=== PATIENT | female | born 1990 | race Two or more races ===

== ENCOUNTER 2025-03-03 08:16 | Emergency (ER) | payer MEDICAID, OTHER ==
[~2025-03-03] VITALS: Ht 157.5 cm; Wt 82.0 kg
[2025-03-03 08:57] VITALS: BP 148/73; PULSE 88; RESP 16; TEMP 98.9; O2SAT 97
[2025-03-03] MEDS ORDERED: AUG875T PO (09:20)
--- NOTE | 2025-03-03 09:25 | ED.PDOC ---
History of Present Illness(SKN HPI Comments A 34 YEAR OLD FEMALE PRESENTS TO THE ED WITH COMPLAINT OF CAT BITE OF RIGHT INDEX FINGER AND CAT SCRATCH OF LEFT FOREARM. PATIENT STATES SHE WAS BIT BY A CAT ON HER RIGHT INDEX FINGER AND SCRATCHED ON HER LEFT FOREARM. PATIENT DENIES FEVER, CHILLS, SHORTNESS OF BREATH, CHEST PAIN, ABDOMINAL PAIN, NAUSEA, VOMITING, HEADACHE, OR OTHER COMPLAINTS. NO OTHER SYMPTOMS OR MODIFYING FACTORS AT THIS TIME. PATIENT IS ALERT, ORIENTED X 4, AND HAS STEADY GAIT. Chief Complaint: Animal Bite Time Seen by MD: 08:27 Primary Care Provider: BEN History of Present Illness: Nurses Notes, Medications, Allergies Allergies: Coded Allergies: NO KNOWN ALLERGIES (Unverified , 03/03/25) Home Meds Active Scripts Amoxicillin & Pot Clavulanate (AUGMENTIN TABLET) 875 Mg Tb, 875 MG PO BID for 7 Days, #14 TAB Prov:FATIMAHROLAND 03/03/25 Information Source: Patient Mode of Arrival: Ambulatory Severity: Mild Timing: Hours Duration: Since onset, Hours Prehospital treatment: None Location: Arm (LEFT FOREARM), Other (RIGHT INDEX FINGER) Mechanism: Cat Occurence: Indoors Object: None Condition of Object: None Retained Foreign Body: No Wound Type: Abrasion Immunization Status of Animal: NA Tetanus: UTD History of: None Associated Signs and Symptoms: None Past Medical History PAST MEDICAL HISTORY: Denies Surgical History: Denies all surgeries 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: No 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 History Family History Family History: Reviewed,noncontributory to illness Social History Smoker: Non-Smoker Alcohol: Denies ETOH Use Drugs: Denies Drug Use Lives In: Home Constitutional: denies: chills, diaphoresis, fatigue, fever, malaise, sweats, weakness, others EENTM: denies: blurred vision, double vision, ear bleeding, ear discharge, ear drainage, ear pain, ear ringing, eye pain, eye redness, hearing loss, mouth pain, mouth swelling, nasal discharge, nose bleeding, nose congestion, nose pain, photophobia, tearing, throat pain, throat swelling, voice changes, others Respiratory: denies: cough, hemoptysis, orthopnea, SOB at rest, shortness of breath, SOB with excertion, stridor, wheezing, others Cardiovascular: denies: chest pain, dizzy spells, diaphoresis, Dyspnea on exertion, edema, irregular heart beat, left arm pain, lightheadedness, palpitations, PND, syncope, others Gastrointestinal: denies: abdomen distended, abdominal pain, blood streaked bowels, constipated, diarrhea, dysphagia, difficulty swallowing, hematemesis, melena, nausea, poor appetite, poor fluid intake, rectal bleeding, rectal pain, vomiting, others Genitourinary: denies: abnormal vagina bleeding, burning, dyspareunia, dysuria, flank pain, frequency, hematuria, incontinence, pain, , vagina discharge, urgency, others Neurological: denies: dizziness, fainting, headache, left sided numbness, left sided weakness, numbness, paresthesia, pre-existing deficit, right sided numbness, right sided weakness, seizure, speech problems, tingling, tremors, weakness, others Musculoskeletal: denies: back pain, gout, joint pain, joint swelling, muscle pain, muscle stiffness, neck pain, others Integumetry: reports: others (CAT SCRATCH OF LEFT FOREARM, CAT BITE OF RIGHT INDEX FINGER); denies: bruises, change in color, change in hair/nails, dryness, laceration, lesions, lumps, rash, wounds Allergic/Immunocompromised: denies: Difficulty Healing, Frequent Infections, Hives, Itching, others Hematologic/Lymphatic: denies: anemia, blood clots, easy bleeding, easy br uising, swollen glands, others Endocrine: denies: excessive hunger, excessive sweating, excessive thirst, excessive urination, flushing, intolerance to cold, intolerance to heat, unexplained weight gain, unexplained weight loss, others Psychiatric: denies: anxiety, bipolar disorder, depression, hopeless, panic disorder, schizophrenia, sleepless, suicidal, others All Other Systems: Reviewed and Negative Physical Exam General Appearance: No Apparent Distress, Normal HEENT: Normal ENT Inspection, PERRL/EOMI, Pharynx Normal, TMs Normal Neck: Full Range of Motion, Non-Tender, Normal, Normal Inspection Respiratory: Chest Non-Tender, Lungs Clear, No Accessory Muscle Use, No Respiratory Distress, Normal Breath Sounds Cardiovascular: No Edema, No JVD, No Murmur, No Gallop, Normal Peripheral Pulses, Regular Rate/Rhythm Breast Exam: Deferred Gastrointestinal: No Organomegaly, Non Tender, No Pulsatile Mass, Normal Bowel Sounds, Soft Genitalia: Deferred Pelvic: Deferred Rectal: Deferred Extremities: No calf tenderness, Normal capillary refill, Normal inspection, Normal range of motion, Non-tender, No pedal edema Musculoskeletal : Apperance: Normal Neurologic: Alert, striping machine operator II-XII nml as Tested, No Motor Deficits, Normal Affect, Normal Mood, No Sensory Deficits Cerebellar Function: Normal Reflexes: Normal Skin: Dry, Normal Color, Warm, Wounds (TWO SCRATCH WOUNDS ON RIGHT INDEX FINGER AND LEFT FOREARM. NO REDNESS AND SWELLING. NORMAL ROM. ) Peripheral Pulses: 2+ carotid (R), 2+ carotid (L), 2+ dorsalis pedis (R), 2+ dorsalis pedis (L) Lymphatic: No Adenopathy Was a procedure done? Was a procedure done?: No Differential Diagnosis (INTG) Differential Diagnosis: Abrasion, Contusion, Puncture Wound, Other (SCRATCHE WOUNDS) Differential Diagnosis: N/A Differential Diagnosis: N/A Abscess: N/A Differential Diagnosis: N/A X-Ray, Labs, Meds, VS Vital Signs Date Time Temp Pulse Resp B/P (MAP) Pulse Ox O2 Delivery O2 Flow Rate FiO2 03/03/25 08:57 88 03/03/25 08:57 98.9 88 16 148/73 (98) 97 98.9 03/03/25 08:30 98.9 88 16 148/73 (98) 97 98.9 X-Ray, Labs, Meds, VS Comment EXTERNAL MEDICAL RECORDS REVIEWED: [NONE] INDEPENDENT HISTORIANS: [NONE] SOCIAL DETERMINANTS OF HEALTH: [NONE] LABS ORDERED: NONE REVIEWED AND INTERPRETED RESULTS: NONE IMAGING ORDERED: NONE TREATMENTS ORDERED: PATIENT'S CAT BITE AND CAT SCRATCH WERE PATIENT HAS A NORMAL SALINE AND ALCOHOL SWABS. PROCEDURES PERFORMED: NONE CRITICAL CARE TIME: NONE I HAVE DISCUSSED THE PATIENT WITH THE ATTENDING PHYSICIAN DR. SUNG AND HE AGREES WITH THE PATIENT'S PLAN OF CARE AND DISPOSITION. BASED ON HISTORY OF PRESENT ILLNESS, AND PHYSICAL EXAM, PATIENT WILL BE DISCHARGED HOME. DISCUSSED PLAN FOR DISCHARGE HOME WITH RX [AUGMENTIN]. ME DICATION WARNINGS GIVEN. SHARED DECISION MAKING: DISCUSSED WITH PATIENT THAT THEIR WORKUP WAS NORMAL. PATIENT INSTRUCTED TO FOLLOW UP WITH PRIMARY CARE PROVIDER IN 1-2 DAYS FOR RE- EVALUATION OF SYMPTOMS. PATIENT VERBALIZES UNDERSTANDING TO RETURN TO ED FOR NEW OR WORSENING SYMPTOMS OR IF FOLLOW UP WITH PCP CANNOT BE OBTAINED. PATIENT FEELS COMFORTABLE GOING HOME AT THIS TIME. ALL QUESTIONS ADDRESSED AT TIME OF DISCHARGE. Time of 1ST Reevaluation: 09:40 Reevaluation 1ST: Improved Patient Education/Counseling: Diagnosis, Treatment, Need For Follow Up Family Education/Counseling: Diagnosis, Treatment, Need For Follow Up Medical Screening: No EMC Exist At This Time Departure 1 Departure Time of Disposition: 09:40 Impression: Primary Impression: Cat bite of index finger Qualified Codes: S61.258A - Open bite of other finger without damage to nail, initial encounter; W55.01XA - Bitten by cat, initial encounter Additional Impression: Cat scratch of left forearm Qualified Codes: S50.812A - Abrasion of left forearm, initial encounter; W55.03XA - Scratched by cat, initial encounter Disposition: HOME / SELF CARE / HOMELESS Condition: Stable Additional Instructions: FOLLOW-UP WITH PCP IN 1 TO 2 DAYS. TAKE MEDICATIONS PRESCRIBED. RETURN TO ED FOR ANY NEW OR WORSENING SYMPTOMS. e-Prescriptions Amoxicillin & Pot Clavulanate (AUGMENTIN TABLET) 875 Mg Tb 875 MG PO BID for 7 Days, #14 TAB Prov: ROLAND SHERIDAN 03/03/25 Discharged With: Self, Spouse Critical Care Note Critical Care Time?: No Stability Stability form required: No I personally scribed for ROLAND SHERIDAN ([email or web address]) on 03/03/25 at 09:25. Electronically submitted by Angel Cuevas ([email or web address]). ROLAND SHERIDAN March 03, 2025 09:25
== END 2025-03-03 09:33 | disposition home or self-care (01) ==
LOC: ER 08:16
DX: S61.250A Open bite of right index finger without damage to nail, initial encounter (principal); S50.812A Abrasion of left forearm, initial encounter; W55.01XA Bitten by cat, initial encounter; Y93.89 Activity, other specified; Y92.89 Other specified places as the place of occurrence of the external cause; Y99.8 Other external cause status

== ENCOUNTER 2025-03-20 13:43 | Emergency (ER) | payer MEDICAID ==
[~2025-03-20] VITALS: Ht 157.5 cm; Wt 86.8 kg
[~2025-03-20 13:43] MED LIST: AUG875T PO
[2025-03-20 13:55] VITALS: TEMP 98.8
[2025-03-20 14:14] VITALS: O2SAT 95
[2025-03-20 14:18] LABS: Basophils # (auto) 0 10 ^3/uL (0-0.2); Basophils % (auto) 0.4 % (0.0-2.0); Eosinophils # (auto) 0.2 10 ^3/uL (0-0.8); Eosinophils % (auto) 2.8 % (0.0-7.0); Hematocrit 36.5 % (36.0-46.0); Hemoglobin 12.5 g/dL (12.2-16.2); Lymphocytes # (auto) 2.5 10 ^3/uL (0.4-5.4); Lymphocytes % (auto) 28.5 % (10.0-50.0); Mean Corpuscular Hemoglobin 28.6 pg (28.0-32.0); Mean Corpuscular Hgb Conc. 34.2 g/dL (32.0-36.0); Mean Corpuscular Volume 83.6 fL (80.0-100.0); Monocytes # (auto) 0.7 10 ^3/uL (0-1.3); Monocytes % (auto) 7.7 % (0.0-12.0); Neutrophils # (auto) 5.4 10 ^3/uL (1.6-8.6); Neutrophils % (auto) 60.6 % (37.0-80.0); Platelet Count (auto) 264 10^3/uL (140-450); Red Blood Cells 4.36 10^6/uL (4.0-5.20); White Blood Cell 8.9 10^3/uL (4.4-10.8)
--- NOTE | 2025-03-20 14:25 | ED.PDOC ---
REMNANT SORTER HPI Comments 34 y.o female presents to the ED for a chief complaint of intermittent vaginal bleeding associated with blood clots and cramping that started 3 days ago. 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 Patient denies any nausea, vomiting, diarrhea, fever, back pain or recent trauma. Patient denies any other medical history or allergies. Chief Complaint: Vaginal Bleed Time Seen by MD: 14:19 Reviewed Notes: Nurses Notes, Medications, Allergies Allergies: Coded Allergies: NO KNOWN ALLERGIES (Unverified , 03/03/25) Home Meds Active Scripts Amoxicillin & Pot Clavulanate (AUGMENTIN TABLET) 875 Mg Tb, 875 MG PO BID for 7 Days, #14 TAB Prov:ROLAND SHERIDAN 03/03/25 Information Source: Patient Mode of Arrival: Ambulatory Timing: Days (3) Severity: Moderate Vaginal Discharge: None Vaginal Lesions: None Bleeding Quality: Clotted Vaginal Mass: None Onset Of Mass/Bleeding: Spontaneous Sexual Activity: Last Consensual Garnet: Unknown Control: None History of: Current Associated Signs and Symptoms: Vaginal Bleeding, Cramping Past Medical History PAST MEDICAL HISTORY: Denies Surgical History: Denies all surgeries 4 Para 1 AB 2 LMP 01/11/25 Family History Family History: Reviewed,noncontributory to illness Social History Smoker: Non-Smoker Alcohol: Denies ETOH Use Drugs: Denies Drug Use Lives In: Home Constitutional: denies: chills, diaphoresis, fatigue, fever, malaise, sweats, weakness, others EENTM: denies: blurred vision, double vision, ear bleeding, ear discharge, ear drainage, ear pain, ear ringing, eye pain, eye redness, hearing loss, mouth pain, mouth swelling, nasal discharge, nose bleeding, nose congestion, nose pain, photophobia, tearing, throat pain, throat swelling, voice changes, others Respiratory: denies: cough, hemoptysis, orthopnea, SOB at rest, shortness of breath, SOB with excertion, stridor, wheezing, others Cardiovascular: denies: chest pain, dizzy spells, diaphoresis, Dyspnea on exertion, edema, irregular heart beat, left arm pain, lightheadedness, palpitations, PND, syncope, others Gastrointestinal: denies: abdomen distended, abdominal pain, blood streaked bowels, constipated, diarrhea, dysphagia, difficulty swallowing, hematemesis, melena, nausea, poor appetite, poor fluid intake, rectal bleeding, rectal pain, vomiting, others Genitourinary: reports: abnormal vagina bleeding, pain, ; denies: burning, dyspareunia, dysuria, flank pain, frequency, hematuria, incontinence, vagina discharge, urgency, others Neurological: denies: dizziness, fainting, headache, left sided numbness, left sided weakness, numbness, paresthesia, pre-existing deficit, right sided numbness, right sided weakness, seizure, speech problems, tingling, tremors, weakness, others Musculoskeletal: denies: back pain, gout, joint pain, joint swelling, muscle pain, muscle stiffness, neck pain, others Integumetry: denies: bruises, change in color, change in hair/nails, dryness, laceration, lesions, lumps, rash, wounds, others Allergic/Immunocompromised: denies: Difficulty Healing, Frequent Infections, Hives, Itching, others Hematologic/Lymphatic: denies: anemia, blood clots, easy bleeding, easy bruising, swollen glands, others Endocrine: denies: excessive hunger, excessive sweating, excessive thirst, excessive urination, flushing, intolerance to cold, intolerance to heat, unexplained weight gain, unexplained weight loss, others Psychiatric: denies: anxiety, bipolar disorder, depression, hopeless, panic disorder, schizophrenia, sleepless, suicidal, others All Other Systems: Reviewed and Negative Physical Exam General Appearance: No Apparent Distress HEENT: Other (Vitals and face symmetric. Moist mucous membranes.) Neck: Full Range of Motion, Normal Inspection Respiratory: Lungs Clear, No Accessory Muscle Use, No Respiratory Distress, Normal Breath Sounds Cardiovascular: No Edema, No JVD, Regular Rate/Rhythm Breast Exam: Deferred Gastrointestinal: Non Tender, Soft Genitalia: Deferred Pelvic: Deferred Rectal: Deferred Extremities: Normal inspection, Normal range of motion, Non-tender, No pedal edema Neurologic: Alert (Oriented x4), Normal Affect, Normal Mood, Other (Ambulatory) Cerebellar Function: NOT DONE Reflexes: NOT DONE Skin: Dry, Normal Color, Warm Lymphatic: NOT DONE Was a procedure done? Was a procedure done?: No Differential Diagnosis (JUKEBOX ROUTEMAN) Vaginal Bleeding: - Complete, - Incomplete, - Inevitable, - Missed, - Threatened, Blood Loss Anemia, Ectopic , Myomatous Uterus, Placenta Previa X-Ray, Labs, Meds, VS Vital Signs Date Time Temp Pulse Resp B/P (MAP) Pulse Ox O2 Delivery O2 Flow Rate FiO2 03/20/25 14:14 95 Room Air* 0 21 03/20/25 13:55 98.8 95 16 137/83 (101) 95 98.8 03/20/25 13:54 98.8 95 16 137/83 (101) 99 98.8 Lab Test 03/20/25 14:24 03/20/25 14:05 03/20/25 13:51 Range/Units Beta HCG, Quantitative 1941.0 H 1.5-4.2 mIU/mL White Blood Count 8.9 4.4-10.8 10^3/uL Red Blood Count 4.36 4.0-5.20 10^6/uL Hemoglobin 12.5 12.2-16.2 g/dL Hematocrit 36.5 36.0-46.0 % Mean Corpuscular Volume 83.6 80.0-100.0 fL Mean Corpuscular Hemoglobin 28.6 28.0-32.0 pg Mean Corpuscular Hemoglobin Concent 34.2 32.0-36.0 g/dL Red Cell Distribution Width 13.0 11.8-14.3 % Platelet Count 264 140-450 10^3/uL Mean Platelet Volume 7.8 6.9-10.8 fL Neutrophils (%) (Auto) 60.6 37.0-80.0 % Lymphocytes (%) (Auto) 28.5 10.0-50.0 % Monocytes (%) (Auto) 7.7 0.0-12.0 % Eosinophils (%) (Auto) 2.8 0.0-7.0 % Basophils (%) (Auto) 0.4 0.0-2.0 % Neutrophils # (Auto) 5.4 1.6-8.6 10 ^3/uL Lymphocytes # (Auto) 2.5 0.4-5.4 10 ^3/uL Monocytes # (Auto) 0.7 0-1.3 10 ^3/uL Eosinophils # (Auto) 0.2 0-0.8 10 ^3/uL Basophils # (Auto) 0 0-0.2 10 ^3/uL Nucleated Red Blood Cells 0.0 % Prothrombin Time 10.4 9.3-11.8 sec Prothrombin Time INR 0.98 0.9-1.15 Activated Partial Thromboplast Time 25.8 24.5-34.5 SEC Sodium Level 141 136-145 mmol/L Potassium Level 3.8 3.5-5.1 mmol/L Chloride Level 105 98-107 mmol/L Carbon Dioxide Level 25 20-31 mmol/L Anion Gap 11 5-15 Blood Urea Nitrogen 7 L 9-23 mg/dL Creatinine 0.60 0.550-1.02 mg/dL Glomerular Filtration Rate Calc 122 >90 mL/min BUN/Creatinine Ratio 11.7 10.0-20.0 Serum Glucose 100 74-106 mg/dL Calcium Level 10.1 8.7-10.4 mg/dL Urine Color Light-brown Yellow Urine Clarity Turbid H Clear Urine pH 6.5 5.0-9.0 Urine Specific [place]ley 1.008 1.001-1.035 Urine Protein Negative Negative Urine Ketones Negative Negative Urine Blood 3+ H Negative /uL Urine Nitrite Negative Negative Urine Bilirubin Negative Negative Urine Urobilinogen Normal Negative mg/dL Urine Leukocyte Esterase Negative Negative /uL Urine RBC 378 0 - 4 /hpf Urine Microscopic WBC 4 0-5 /HPF Urine Squamous Epithelial Cells Few <5 /hpf Urine Bacteria Few H None Seen /hpf Urine Glucose Normal Normal mg/dL Urine Test Positive Negative PROCEDURE(s): OB4US - OB ULTRASOUND COMP LESS 14WKS REASON: 6 wk preg vb ORDER NUMBER(s): [id number], ACCESSION NUMBER(s): [id number] OB ULTRASOUND <14 WEEKS: HISTORY: 6 wk preg vb TECHNIQUE: Multiple real-time grayscale sonographic images of the pelvis with duplex Doppler color flow, spectral and M-mode analysis. TRANSDUCERS: Transabdominal FINDINGS: The uterus measures 11.2 x 4.9 x 6.5 cm The cervix not measured Right ovary measures 3.5 x 3.5 x 2.1 cm with normal Doppler color flow. Small anechoic lesion in the right ovary measures 2.1 x 2 x 2 cm. May represent a corpus luteal cyst Left ovary measures 2.1 x 2.4 x 1.9 cm with normal Doppler color flow IUP single 1.48 cm cystic area in the endometrium. There is no pole or heart rate and no definitive findings of yolk sac. No heart rate detected. Yolk sac . Maria E-gestational space: Normal IMPRESSION: 1. Cystic area in the endometrium no pole no heart rate. Recommend follow-up to exclude early gestational sac. X-Ray, Labs, Meds, VS Comment 34-year-old female ab 2 current approximate 6 week complaining of cramping and vaginal bleeding Vitals unremarkable Exam unremarkable Rhythm strip independently interpreted by me: Sinus rhythm, rate 95, no ectopy. Ob ultrasound IMPRESSION: 1. Cystic area in the endometrium no pole no heart rate. Recommend follow-up to exclude early gestational sac. CBC, basic metabolic panel, coag panel unremarkable. Serum quantitative hCG 1941. UA abnormal with some blood, WBCs and bacteria. Patient treated with the following in the ED: Rocephin 1 g IM , Tylenol 1 g p.o. On re-evaluation, patient was well-appearing and hemodynamically stable. She was not in pain. Patient appears stable for discharge with close outpatient follow-up with her OBGYN for repeat serum quantitative hCG and ultrasound. Rx Keflex, Tylenol Time of 1ST Reevaluation: 15:00 Reevaluation 1ST: Unchanged Patient Education/Counseling: Diagnosis, Treatment, Prognosis Family Education/Counseling: No Family Present Departure 1 Departure Time of Disposition: 16:46 Impression: Primary Impression: Vaginal bleeding affecting early Additional Impression: UTI (urinary tract infection) Qualified Codes: N39.0 - Urinary tract infection, site not specified; R31.9 - Hematuria, unspecified Disposition: 01 HOME / SELF CARE / HOMELESS Condition: Stable Referrals: JAGUAR HORTON DO Additional Instructions: Your blood tests were unremarkable. Your blood hormone level (serum quantitative hCG) was 1941 mIU/mL. Your urine test showed a possible urinary tract infection. I have prescribed antibiotics. Your ultrasound showed a gestational sac, however the baby was not visualized. This could indicate a very early in which it is too early to see the baby on ultrasound. Alternatively, this could represent a recent miscarriage. Follow-up with your OBGYN in 2-3 days for repeat serum quantitative hCG and repeat ultrasound to confirm. Return to ER for heavy bleeding, pain, or any other concern. If you do not have an OBGYN, you may follow-up directly with Dr. Horton. [address] [address] Ph: [phone] DIAGNOSTIC IMAGING Diagnostic Imaging Report : [id number] Signed PATIENT: LUDY DE LA CRUZ ACCT: [id number] UNIT: [id number] : 1990 LOC: ER ROOM / BED: / AGE / SEX: 34 / F ADM STATUS: REG ER SERVICE 1429 ORDERING PHYSICIAN: CRYSTAL FRIEND MD PROCEDURE(s): OB4US - OB ULTRASOUND COMP LESS 14WKS REASON: 6 wk preg vb ORDER NUMBER(s): [id number], ACCESSION NUMBER(s): [id number] OB ULTRASOUND <14 WEEKS: HISTORY: 6 wk preg vb TECHNIQUE: Multiple real-time grayscale sonographic images of the pelvis with duplex Doppler color flow, spectral and M-mode analysis. TRANSDUCERS: Transabdominal FINDINGS: The uterus measures 11.2 x 4.9 x 6.5 cm The cervix not measured Right ovary measures 3.5 x 3.5 x 2.1 cm with normal Doppler color flow. Small anechoic lesion in the right ovary measures 2.1 x 2 x 2 cm. May represent a corpus luteal cyst Left ovary measures 2.1 x 2.4 x 1.9 cm with normal Doppler color flow IUP single 1.48 cm cystic area in the endometrium. There is no pole or heart rate and no definitive findings of yolk sac. No heart rate detected. Yolk sac . Maria E-gestational space: Normal IMPRESSION: 1. Cystic area in the endometrium no pole no heart rate. Recommend follow-up to exclude early gestational sac. ATED BY: YUKI RODRIGUEZ Jr. DO DICTATED DATE/TIME: 03/20/25 [id number] e-Prescriptions Acetaminophen (Tylenol Extra Strength) 500 Mg Tab 1000 MG PO Q6HP PRN, #30 TAB Prov: CRYSTAL FRIEND MD 03/20/25 Cephalexin Monohydrate (Cephalexin) 500 Mg Cap 1 CAP PO QID for 10 Days, #40 CAP Prov: CRYSTAL FRIEND MD 03/20/25 Discharged With: Relative Critical Care Note Critical Care Time?: No Stability Stability form required: No I personally scribed for CRYSTAL FRIEND MD ([email or web address]) on 03/20/25 at 14:25. Electronically submitted by Lu Nuñez ([facility]). CRYSTAL FRIEND MD Mar 20, 2025 14:25
[2025-03-20 14:29] LABS: Chloride 105 mmol/L (98-107); Potassium 3.8 mmol/L (3.5-5.1); Sodium 141 mmol/L (136-145)
[2025-03-20 14:30] LABS: Anion Gap 11 (5-15); Calcium 10.1 mg/dL (8.7-10.4); Carbon Dioxide 25 mmol/L (20-31)
[2025-03-20 14:35] LABS: BUN/Creatinine Ratio 11.7 (10.0-20.0); Glucose 100 mg/dL (74-106); INR 0.98 (0.9-1.15); Partial Thromboplastin Time 25.8 SEC (24.5-34.5); Prothrombin Time 10.4 sec (9.3-11.8)
[2025-03-20 14:38] LABS: Blood Urea Nitrogen 7 mg/dL (9-23)
[2025-03-20 15:56] LABS: Urine Bacteria FEW /hpf (None Seen); Urine Blood 3+ /uL (Negative); Urine Clarity Turbid (Clear); Urine Color Light-Brown (Yellow); Urine Protein, UAD Negative (Negative); Urine Specific Gravity 1.008 (1.001-1.035); Urine Squamous Epithelial Cell FEW /hpf (<5); Urine Urobilinogen Normal (Negative); Urine WBC 4 /HPF (0-5); Urine pH 6.5 (5.0-9.0)
--- NOTE | 2025-03-20 16:11 | DVH ---
OB ULTRASOUND <14 WEEKS: HISTORY: 6 wk preg vb TECHNIQUE: Multiple real-time grayscale sonographic images of the pelvis with duplex Doppler color f low, spectral and M-mode analysis. TRANSDUCERS: Transabdominal FINDINGS: The uterus measures 11.2 x 4.9 x 6.5 cm The cervix not measured Right ovary measures 3.5 x 3.5 x 2.1 cm with normal Doppler color flow. Small anechoic lesion in the right ovary measures 2.1 x 2 x 2 cm. May represent a corpus luteal cyst Left ovary measures 2.1 x 2.4 x 1.9 cm with normal Doppler color flow IUP single 1.48 cm cystic area in the endometrium. There is no pole or heart rate and no definitive findings of yolk sac. No heart rate detected. Yolk sac . Maria E-gestational space: Normal IMPRESSION: 1. Cystic area in the endometrium no pole no heart rate. Recommend follow-up to exclude e johnnie gestational sac.
[2025-03-20 16:54] VITALS: BP 129/70; PULSE 88; RESP 18; O2SAT 97
[2025-03-20] MEDS ORDERED: CEPH500C PO (16:54)
[2025-03-20] MEDS ORDERED: ACET-1304 PO (16:54)
[2025-03-20] MEDS: cefTRIAXone W LIDOCAINE 1 GM IM IM ONE (17:07)
[2025-03-20] MEDS: ACETAMINOPHEN 500 MG TAB or CAP PO ONE (17:08)
== END 2025-03-20 17:05 | disposition home or self-care (01) ==
LOC: ER 13:43
DX: O20.0 Threatened abortion (principal); O20.9 Hemorrhage in early pregnancy, unspecified; O23.41 Unspecified infection of urinary tract in pregnancy, first trimester; N39.0 Urinary tract infection, site not specified; Z3A.01 Less than 8 weeks gestation of pregnancy
CPT/HCPCS: 36415; 76801; 80048; 81001; 81025; 84702; 85025; 85610; 85730; 99284; J0696

== ENCOUNTER 2025-09-10 17:59 | Emergency (ER) | payer MEDICAID ==
[~2025-09-10] VITALS: Ht 157.5 cm; Wt 86.9 kg
[~2025-09-10 17:59] MED LIST changes: +ACET-1304 PO; +CEPH500C PO
[2025-09-10 20:20] VITALS: BP 125/75; PULSE 10; TEMP 98.5
--- NOTE | 2025-09-10 20:23 | ED.PDOC ---
History of Present Illness HPI Comments A 35 year-old female presents to the ED with a chief complaint of cough and body pain X1 week. Patient denies any recent exposure to familial illness. Patient has no further complaints or modifying factors at this time. Patient denies symptoms of dizziness, weakness, SOB, fever, or chills. Chief Complaint: Flu like Time Seen by MD: 20:11 Primary Care Provider: AVE Stearns Notes: Medications, Allergies Allergies: Coded Allergies: NO KNOWN ALLERGIES (Unverified , 03/03/25) Home Meds Active Scripts Albuterol Sulfate (VENTOLIN MDI) 90 Mcg Ih, 90 MCG IN Q6HP PRN for 14 Days, #1 INHALER Prov:DORON CRUZ [facility] 09/10/25 Promethazine-Dm (Promethazine Dm 6.25-15 mg/5Ml) 1 Gin Gin, 5 ML PO TID PRN for 5 Days, #75 ML Prov:DORON CRUZ [facility] 09/10/25 Azithromycin (Azithromycin) 250 Mg Tab, 250 MG PO DAILY MDD 500 for 5 Days, #6 TAB 0 Refills 2 TABLETS ORALLY ON DAY ONE, THEN 1 TABLET ORALLY DAILY FOR 4 DAYS Prov:DORON CRUZ [facility] 09/10/25 Acetaminophen (Tylenol Extra Strength) 500 Mg Tab, 1000 MG PO Q6HP PRN, #30 TAB Prov:CRYSTAL FRIEND MD 03/20/25 Cephalexin Monohydrate (Cephalexin) 500 Mg Cap, 1 CAP PO QID for 10 Days, #40 CAP Prov:CRYSTAL FRIEND MD 03/20/25 Amoxicillin & Pot Clavulanate (AUGMENTIN TABLET) 875 Mg Tb, 875 MG PO BID for 7 Days, #14 TAB Prov:ROLAND SHERIDAN 03/03/25 Information Source: Patient, Spouse Mode of Arrival: Ambulatory Severity: Moderate Timing: Weeks Duration: Since onset Past Medical History PAST MEDICAL HISTORY: Denies Surgical History: Denies all surgeries Family History Family History: Reviewed,noncontributory to illness Social History Smoker: Non-Smoker Alcohol: Denies ETOH Use Drugs: Denies Drug Use Lives In: Home Constitutional: reports: others (body pain ); denies: chills, diaphoresis, fa tigue, fever, malaise, sweats, weakness EENTM: denies: blurred vision, double vision, ear bleeding, ear discharge, ear drainage, ear pain, ear ringing, eye pain, eye redness, hearing loss, mouth pain, mouth swelling, nasal discharge, nose bleeding, nose congestion, nose pain, photophobia, tearing, throat pain, throat swelling, voice changes, others Respiratory: reports: cough; denies: hemoptysis, orthopnea, SOB at rest, shortness of breath, SOB with excertion, stridor, wheezing, others Cardiovascular: denies: chest pain, dizzy spells, diaphoresis, Dyspnea on exertion, edema, irregular heart beat, left arm pain, lightheadedness, palpitations, PND, syncope, others Gastrointestinal: denies: abdomen distended, abdominal pain, blood streaked bowels, constipated, diarrhea, dysphagia, difficulty swallowing, hematemesis, melena, nausea, poor appetite, poor fluid intake, rectal bleeding, rectal pain, vomiting, others Genitourinary: denies: abnormal vagina bleeding, burning, dyspareunia, dysuria, flank pain, frequency, hematuria, incontinence, pain, , vagina discharge, urgency, others Neurological: denies: dizziness, fainting, headache, left sided numbness, left sided weakness, numbness, paresthesia, pre-existing deficit, right sided num bness, right sided weakness, seizure, speech problems, tingling, tremors, weakness, others Musculoskeletal: denies: back pain, gout, joint pain, joint swelling, muscle pain, muscle stiffness, neck pain, others Integumetry: denies: bruises, change in color, change in hair/nails, dryness, laceration, lesions, lumps, rash, wounds, others Allergic/Immunocompromised: denies: Difficulty Healing, Frequent Infections, Hives, Itching, others Hematologic/Lymphatic: denies: anemia, blood clots, easy bleeding, easy bruising, swollen glands, others Endocrine: denies: excessive hunger, excessive sweating, excessive thirst, excessive urination, flushing, intolerance to cold, intolerance to heat, unexplained weight gain, unexplained weight loss, others Psychiatric: denies: anxiety, bipolar disorder, depression, hopeless, panic disorder, schizophrenia, sleepless, suicidal, others All Other Systems: Reviewed and Negative Physical Exam General Appearance: No Apparent Distress, Normal HEENT: Normal ENT Inspection, Pharynx Normal, TMs Normal Neck: Full Range of Motion, Non-Tender Respiratory: No Accessory Muscle Use, No Respiratory Distress, Wheezing Cardiovascular: No Edema, No JVD, No Murmur, No Gallop, Normal Peripheral Pulses, Regular Rate/Rhythm Breast Exam: Deferred Gastrointestinal: No Organomegaly, Non Tender, No Pulsatile Mass, Normal Bowel Sounds, Soft Genitalia: Deferred Pelvic: Deferred Rectal: Deferred Extremities: Normal capillary refill, Normal range of motion, Non-tender Musculoskeletal : Apperance: Normal Neurologic: Alert, No Motor Deficits, Normal Affect, Normal Mood, No Sensory Deficits Cerebellar Function: Normal Reflexes: NOT DONE Skin: Dry, Normal Color, Warm Lymphatic: No Adenopathy Was a procedure done? Was a procedure done?: No Differential Dx Considerations may include: Bronchitis, Pharyngitis, Anxiety, Viral Syndrome, Strep X-Ray, Labs, Meds, VS Vital Signs Date Time Temp Pulse Resp B/P (MAP) Pulse Ox O2 Delivery O2 Flow Rate FiO2 09/10/25 20:35 18 95 Room Air* 0 21 09/10/25 20:21 Room Air* 0 21 09/10/25 20:20 98.5 10 16 125/75 (92) 96 98.5 09/10/25 18:01 98.5 105 17 128/75 95 98.5 09/10/25 18:01 Room Air* 0 21 Time of 1ST Reevaluation: 20:11 Reevaluation 1ST: Unchanged Time of 2ND Reevaluation: 20:49 Reevaluation 2ND: Improved Patient Education/Counseling: Diagnosis, Treatment, Need For Follow Up Family Education/Counseling: Diagnosis, Treatment SEPSIS Sepsis Screen Date sepsis recognized/suspect: Sep 10, 2025 Time Sepsis recognized/suspect: 1800 Recent Procedure: No On Antibiotic Therapy: No Respiratory Rate >20: No Heart Rate >90: No Temp<36 C (96.8 F) or >38.3 C: No SBP <90 or MAP <65 mmHG: No New Acute Mental Status Change: No Is the patient on CPAP, BIPAP,: No Vital Signs Date Time Temp Pulse Resp B/P (MAP) Pulse Ox O2 Delivery O2 Flow Rate FiO2 09/10/25 20:35 18 95 Room Air* 0 21 21 09/10/25 20:21 Room Air* 0 21 09/10/25 20:20 98.5 10 16 125/75 (92) 96 98.5 09/10/25 18:01 98.5 105 17 128/75 95 98.5 09/10/25 18:01 Room Air* 0 21 Departure 1 Departure Time of Disposition: 20:49 Impression: Primary Impression: Bronchitis Disposition: 01 HOME / SELF CARE / HOMELESS Condition: Stable e-Prescriptions Albuterol Sulfate (VENTOLIN MDI) 90 Mcg Ih 90 MCG IN Q6HP PRN for 14 Days, #1 INHALER Prov: DORON CRUZ 09/10/25 Promethazine-Dm (Promethazine Dm 6.25-15 mg/5Ml) 1 Gin Gin 5 ML PO TID PRN for 5 Days, #75 ML Prov: DORON CRUZ 09/10/25 Azithromycin (Azithromycin) 250 Mg Tab 250 MG PO DAILY MDD 500 for 5 Days, #6 TAB 0 Refills 2 TABLETS ORALLY ON DAY ONE, THEN 1 TABLET ORALLY DAILY FOR 4 DAYS Prov: DORON CRUZ 09/10/25 Discharged With: Spouse Critical Care Note Critical Care Time?: No Stability Stability form required: No Heart Score Heart Score: Heart Score Response (Comments) Value History N/A 0 EKG N/A 0 Age N/A 0 Risk Factors N/A 0 Troponin N/A 0 Total 0 I personally scribed for ER ([email or web address]) on 09/10/25 at 20:22. Electronically submitted by María Madden ([facility]). ER Sep 10, 2025 20:22 DORON CRUZ Sep 10, 2025 20:49
[2025-09-10] MEDS: IPRATROPIUM BROM 0.5 MG/2.5ML INH SOL NEB ONE (20:34)
[2025-09-10] MEDS: ALBUTEROL SULF 2.5 MG/0.5ML(0.5%) NEB SOLN NEB ONE (20:34)
[2025-09-10 20:35] VITALS: RESP 18; O2SAT 95
[2025-09-10] MEDS: predniSONE 20 MG TAB PO ONE (20:36)
[2025-09-10] MEDS: PROMETHAZINE-DM 5 ML ORAL SYRUP PO ONE (20:36)
[2025-09-10] MEDS ORDERED: ALBUAER3 IN (20:52)
[2025-09-10] MEDS ORDERED: AZIT-43 PO (20:52)
[2025-09-10] MEDS ORDERED: PROM1SOL4 PO (20:52)
== END 2025-09-10 21:01 | disposition home or self-care (01) ==
LOC: ER 17:59
DX: J40 Bronchitis, not specified as acute or chronic (principal); Z79.899 Other long term (current) drug therapy
CPT/HCPCS: 94640; 99283; J7512